=== PATIENT | male | born 1990 | race Two or more races ===

== ENCOUNTER 2018-03-03 11:24 | Emergency (ER) | payer OTHER ==
--- NOTE | 2018-03-03 12:25 | EDPHY ---
H & P Time Seen by Provider: 03/03/18 12:24 HPI/ROS: Chief complaint. Possible PE HPI. Patient is a 27-year-old male was diagnosed at [facility] today with mono. For the past 3 days he has had some swollen lymph nodes in his neck and some sore throat. Today he had left-sided chest discomfort with deep breathing. He has left upper quadrant pain. He feels slight shortness of breath. No unusual leg pain or swelling. A D-dimer was drawn at the [facility] and was elevated. He was sent to rule out pulmonary embolus ROS 10 systems were reviewed and negative with the exception of the elements mentioned in the history of present illness Past Medical/Surgical History: [place] Social History: Single, nonsmoker, no alcohol Physical Exam: General Appearance: Alert well-developed male mild distress vital signs are stable. Pulse oximeter is 96% sat on room Eyes: Pupils equal and round no pallor or injection. ENT, pharynx mildly injected without exudate. Anterior cervical adenopathy Respiratory: There are no retractions, lungs are clear to auscultation. Cardiovascular: Regular rate and rhythm. Gastrointestinal: Abdomen is soft with mild tenderness in the left upper quadrant. Neurological: Awake and alert, sensory and motor exams grossly normal. Skin: Warm and dry, no rashes. Musculoskeletal: Neck is supple nontender. Extremities symmetrical, full range of motion. Psychiatric: Patient is oriented X 3, there is no agitation. Constitutional: Initial Vital Signs Temperature (C) 36.8 C 03/03/18 11:31 Heart Rate 74 03/03/18 11:31 Respiratory Rate 18 03/03/18 11:31 Blood Pressure 110/88 H 03/03/18 11:31 O2 Sat (%) 96 03/03/18 11:31 O2 Delivery Mode Room Air Allergies/Adverse Reactions: No Known Allergies Allergy (Unverified 03/03/18 11:31) Home Medications: Medication Instructions Recorded NK [No Known Home Meds] 03/03/18 Medical Decision Making - Diagnostics Imaging Results: Imaging Impressions Chest/Thorax CTA 03/03/18 12:30 Impression: 1. No pulmonary embolism. 2. Clear lungs. Findings and recommendations discussed with SHARON MURPHY at 1:47 PM hour, 03/03/2018. Final report concurs with initial preliminary interpretation. CT angiogram reviewed by me and discussed with Dr. Damico shows no evidence for PE Procedures: IV normal saline ED Course/Re-evaluation: On re-evaluation at 1:55 p.m. Patient is stable. He and I discussed imaging study results. We discussed treatment plan for mononucleosis with warnings given to avoid activity that may result in Trauma for the next 3 weeks. He expresses understanding and agreement Differential Diagnosis: Patient has mono. There was concern for pulmonary embolus. He does not have pulmonary embolus or pneumonia - Data Points Laboratory Results: Laboratory Results 03/03/18 11:50 03/03/18 11:50 Sodium 138 mEq/L mEq/L (135-145) Potassium 4.3 mEq/L mEq/L (3.3-5.0) Chloride 103 mEq/L mEq/L (97-110) Carbon Dioxide 26 mEq/l mEq/l (22-31) Anion Gap 9 mEq/L mEq/L (6-14) BUN 10 mg/dL mg/dL (7-23) Creatinine 1.0 mg/dL mg/dL (0.7-1.3) Estimated GFR > 60 Glucose 92 mg/dL mg/dL (70-100) Calcium 9.2 mg/dL mg/dL (8.5-10.4) Medications Given: Discontinued Medications Sodium Chloride (Ns) 1,000 mls @ 0 mls/hr IV ONCE ONE; Wide Open PRN Reason: Protocol Stop: 03/03/18 12:30 Last Admin: 03/03/18 12:33 Dose: 1,000 mls Departure - Departure Disposition: Home, Routine, Self-Care Clinical Impression: Mononucleosis Condition: Good Instructions: Mononucleosis (ED) Additional Instructions: Drink plenty of fluids and stay hydrated. Ibuprofen 600 mg every 6 hr, Tylenol 1000 mg every 4-6 hours as needed for discomfort Avoid any activity that may result in trauma for the next 3 weeks. Return for worsening symptoms including worsening breathing or difficulty swallowing. Follow-up at [facility] Referrals: NONE *PRIMARY CARE P,. [Primary Care Provider] - As per Instructions [facility] [Clinic] - As per Instructions
[2018-03-03] MEDS ORDERED: NS 1,000 ML IV ONE (12:29)
[2018-03-03] MEDS ORDERED: IOPAMIDOL (ISOVUE 370) 100 ML BTL IV ONE (12:55)
[2018-03-03 13:49] VITALS: BP 124/73
== END 2018-03-03 14:15 | disposition home or self-care (01) ==
DX: B27.90 Infectious mononucleosis, unspecified without complication (principal)
CPT/HCPCS: Q9967